=== PATIENT | male | born 1960 | race Caucasian/White ===

== ENCOUNTER 2016-12-21 10:32 | Emergency (ER) | payer BC, OTHER ==
[~2016-12-21] VITALS: Ht 188 cm; Wt 99.3 kg
[~2016-12-21 10:32] MED LIST: BENA25TA8 PO; COZA100T PO; EPIP0.3I IM; LOPI600T PO; PRED20 PO; ZOCO40TA PO
[2016-12-21 10:43] VITALS: BP 164/90; PULSE 93; RESP 16; TEMP 97.9; O2SAT 97
[2016-12-21] MEDS ORDERED: LOSA100T PO (11:19)
[2016-12-21] MEDS ORDERED: SIMV40TA PO (11:19)
[2016-12-21] MEDS ORDERED: GEMF600T PO (11:19)
--- NOTE | 2016-12-21 11:26 | RADHPO ---
EXAM DATE/TIME: 12/21/2016 10:54 [place] COMPARISON: No previous studies available for comparison. INDICATIONS : Right hand pain after stove fell on it. MEDICAL HISTORY : None. SURGICAL HISTORY : None. ENCOUNTER: Initial ACUITY: 2 days PAIN SCORE: 10/10 LOCATION: Right posterior hand FINDINGS: There is a fracture base of the fifth metacarpal that extends into the carpal metacarpal joint. No other fractures are appreciated. CONCLUSION: Fracture base of the fifth metacarpal. Darnell Torres MD FACR on December 21, 2016 at 11:13 Board Certified Radiologist. This report was verified electronically.
[2016-12-21] MEDS ORDERED: ONDANSETRON ODT 4 MG TAB PO ONE (11:30)
[2016-12-21] MEDS ORDERED: oxyCODONE/ACETAMINOPHEN 5 MG/325 MG TAB PO ONE (11:30)
--- NOTE | 2016-12-21 11:45 | PD ---
HPI Chief Complaint: Injury Time Seen by Provider: 11:25 Travel History International Travel<30 days: No Contact w/Intl Traveler<30days: No Traveled to known affect area: No History of Present Illness HPI 56-year-old right-handed male presents to the emergency room for evaluation of right hand pain and swelling after dropping an oven on his hand last night. Patient states he was trying to maneuver it when it slipped and fell on his hand. Instinctively, he used his other hand to try to free his right hand and got a cut on the left hand. He cleaned the wound and put butterfly Band-Aids on it. Patient did not apply ice or take anything for his pain. He went to bed hoping it would improve by the morning. This morning when he woke with excruciating 10/10 pain, he decided to have it checked out. Denies paresthesias. States pain is worse with any range of motion of the hand. States he can still move his hand. Last tetanus was 2012. History of hypertension and hypercholesterolemia. PFSH Past Medical History Arthritis: Yes High Cholesterol: Yes Diminished Hearing: No Hypertension: Yes Triglycerides - High: Yes Tetanus Vaccination: < 5 Years Influenza Vaccination: No Social History Alcohol Use: Yes Tobacco Use: Yes (1/2 ppd) Substance Use: No Allergies-Medications (Allergen,Severity, Reaction): Coded Allergies: Penicillin (Verified Allergy, Mild, RASH, ITCHING, 12/21/16) Reported Meds & Prescriptions Reported Meds & Active Scripts Active Zofran Odt (Ondansetron Odt) 4 Mg Tab 4 Mg SL Q6HR PRN Percocet (Oxycodone-Acetaminophen) 5-325 mg Tab 1 Tab PO Q6H PRN Reported Gemfibrozil 600 Mg Tab 600 Mg PO BIDAC Take 30 minutes prior to breakfast and dinner. Simvastatin 40 Mg Tab 40 Mg PO HS Losartan (Losartan Potassium) 100 Mg Tab 100 Mg PO DAILY Review of Systems Except as stated in HPI: all other systems reviewed are Neg Physical Exam Narrative GENERAL: Well-nourished, well-developed male in no acute distress. Afebrile. Ambulatory. SKIN: Focused skin assessment warm/dry. No erythema or ecchymosis in the right hand. There is a 2 cm superficial laceration that is well approximated/healing on the left thumb. HEAD: Normocephalic. EYES: No scleral icterus. No injection or drainage. NECK: Supple, trachea midline. No JVD or lymphadenopathy. CARDIOVASCULAR: Regular rate and rhythm without murmurs, gallops, or rubs. RESPIRATORY: Breath sounds equal bilaterally. No accessory muscle use. EXTREMITY: Right fifth metacarpal extremely tender to palpation. Limited range of motion secondary to pain. Moderate edema over the right fifth metacarpal. Less than 2 second capillary refill distally. 2+ radial pulse. Distal sensation intact. Data Data Last Documented VS Vital Signs Date Time Temp Pulse Resp B/P Pulse Ox O2 Delivery O2 Flow Rate FiO2 12/21/16 10:43 97.9 93 16 164/90 97 Orders Hand, Complete (Epm1fmh) (12/21/16 10:46) Oxycodone-Acetamin 5-325 Mg (Percocet (12/21/16 11:30) Ondansetron Odt (Zofran Odt) (12/21/16 11:30) Splint Or Brace Apply/Monitor (12/21/16 11:45) MDM Medical Decision Making Medical Screen Exam Complete: Yes Emergency Medical Condition: Yes Medical Record Reviewed: Yes Differential Diagnosis Fracture versus abrasion versus contusion versus sprain versus strain Narrative Course 56-year-old right handed male presents to the emergency room for evaluation of right hand pain and swelling after dropping an oven on his hand last night. He denies paresthesias or loss of range of motion. Physical exam reveals moderate edema and extreme tenderness to palpation of the right fifth metacarpal. Less than 2 second capillary refill distally. X-ray shows fracture at the base of the fifth metacarpal which extends into the carpal metacarpal joint. I spoke to the hand surgeon on-call, Dr. Blanco, who recommends a well padded splint from elbow to fingertips and follow-up in his office next week. Patient was given Percocet and Zofran in the emergency room for pain. He'll be discharged with prescriptions for the same. He was given follow-up information and told to return for worsening symptoms. He understands and agrees to plan. Diagnosis Primary Impression: Fracture of fifth metacarpal bone Qualified Code: S62.346A - Closed nondisplaced fracture of base of fifth metacarpal bone of right hand, initial encounter Referrals: Alka Blanco MD Patient Instructions: General Instructions, Hand Fracture (ED) Additional Instructions: Rest and drink plenty of fluids. Keep splint on until follow-up. Take Percocet as directed for pain. Do not drink alcohol or drive taking this medication. Take ibuprofen with food as directed, as needed for pain. Keep elevated and apply ice to the affected area for 20 minutes at a time, as needed for pain and swelling. Follow-up with a hand surgeon within 1 week. Return to the emergency room for worsening symptoms. Med/Other Pt SpecificInfo: Prescription(s) given Scripts Ondansetron Odt (Zofran Odt)4 Mg Tab4 Mg SL Q6HR PRN (Nausea/Vomiting) #12 TAB Ref 0 Prov:Migue Amor MD 12/21/16 Oxycodone-Acetaminophen (Percocet)5-325 mg Tab1 Tab PO Q6H PRN (PAIN) #15 TAB Ref 0 Prov:Migue Amor MD 12/21/16 Disposition: 01 DISCHARGE HOME Condition: Stable Kaila Eckert December 21, 2016 11:45
[2016-12-21] MEDS ORDERED: PERC5TAB12 PO (11:47)
[2016-12-21] MEDS ORDERED: ZOFR4TAB3 SL (11:47)
[2016-12-21 12:18] VITALS: RESP 16
== END 2016-12-21 12:23 | disposition home or self-care (01) ==
LOC: PHED 10:32 → PHEFT 12:23
DX: S62.316A Displaced fracture of base of fifth metacarpal bone, right hand, initial encounter for closed fracture (principal); I10 Essential (primary) hypertension; E78.00 Pure hypercholesterolemia, unspecified; M19.90 Unspecified osteoarthritis, unspecified site; E78.1 Pure hyperglyceridemia; F17.200 Nicotine dependence, unspecified, uncomplicated; W45.8XXA Other foreign body or object entering through skin, initial encounter; Z79.899 Other long term (current) drug therapy
CPT/HCPCS: 29125; 73130